=== PATIENT | female | born 1960 | race Caucasian/White ===

== ENCOUNTER → 2017-07-17 | Outpatient (CLI) | payer OTHER | LOC: FIMAGING 15:14 | PROVIDERS: ATTEND Obstetrics & Gynecology | DX: Z12.31 Encounter for screening mammogram for malignant neoplasm of breast (principal); Z80.3 Family history of malignant neoplasm of breast | CPT/HCPCS: G0202 ==

== ENCOUNTER 2018-02-17 00:18 | Emergency (ER) | payer OTHER ==
--- NOTE | 2018-02-17 00:28 | CPEKG ---
Heart Rate: 59 RR Interval: 1017 P-R Interval: 188 QRSD Interval: 80 QT Interval: 416 QTC Interval: 413 P [place]: 78 QRS [place]: 65 T Wave [place]: 39 EKG Severity - NORMAL ECG - EKG Impression: SINUS RHYTHM Electronically Signed By: Daniel Bowman 17-Feb-2018 06:53:47
[2018-02-17] MEDS ORDERED: ASPIRIN 81 MG CHEWABLE TAB PO ONE (00:46)
[2018-02-17 01:11] LABS: PLATELET COUNT 196 10^3/uL (150-400)
--- NOTE | 2018-02-17 02:14 | EDPHY ---
H & P Stated Complaint: 2330 woke up with CP and SOB Time Seen by Provider: 02/17/18 00:24 HPI/ROS: Chief Complaint: Chest pain HPI: 57-year-old healthy woman woke at 1155 with substernal chest pain, at worst in 06/08. It was not radiating. She did feel clammy. Burn no aggravating or alleviating factors. She does not have a history of similar episodes before. She does not smoke. No family history of coronary artery disease. Denies any past medical problems. Takes no medicines. No recent illness. No periods of prolonged immobility. No calf pain or swelling. Pain resolved just prior to arrival here that she is currently without complaint. ROS: 10 point Review of Systems is negative except as noted in the HPI. PMH: Denies Social History: No smoking, occasional alcohol, no recreational drug use Family History: non-contributory Physical Exam: Gen: Awake, Alert, No Distress HEENT: Nose: no rhinorrhea Eyes: PERRLA, EOMI Mouth: Moist mucosa Neck: Supple, no JVD Chest: nontender, lungs clear to auscultation Heart: S1, S2 normal, no murmur Abd: Soft, non-tender, no guarding Back: no CVA tenderness, no midline tenderness Ext: no edema, non-tender Skin: no rash Neuro: CN II-XII intact, Sensation grossly intact, Strength 5/5 in bilateral upper and lower extremities - Personal History Current Tetanus/Diphtheria Vaccine: Yes Current Tetanus Diphtheria and Acellular Pertussis (TDAP): Yes - Medical/Surgical History Hx Asthma: No Hx Chronic Respiratory Disease: No Hx Diabetes: No Hx Cardiac Disease: No Hx Renal Disease: No Hx Cirrhosis: No Hx Alcoholism: No Hx HIV/AIDS: No Hx Splenectomy or Spleen Trauma: No Other PMH: none stated - Social History Smoking Status: Never smoked Constitutional: Initial Vital Signs Temperature (C) 36.6 C 02/17/18 00:19 Heart Rate 69 02/17/18 00:19 Respiratory Rate 18 02/17/18 00:19 Blood Pressure 110/72 02/17/18 00:19 O2 Sat (%) 96 02/17/18 00:19 O2 Delivery Mode Room Air Allergies/Adverse Reactions: No Known Allergies Allergy (Verified 02/17/18 00:22) Home Medications: Medication Instructions Recorded NK [No Known Home Meds] 01/15/15 Medical Decision Making - Diagnostics EKG Interpretation: ECG time 12:27 a.m., sinus rhythm with a rate of 59, normal axis, normal intervals, no acute ST or T-wave changes. Impression: Normal ECG. Imaging Results: Chest x-ray is negative per my interpretation. Imaging: I viewed and interpreted images myself ED Course/Re-evaluation: 57-year-old woman with no risk factors for coronary disease woke with substernal chest pain. Pain is resolved. She has gotten aspirin here. Her ECG is normal. Initial troponin is negative. Chest x-ray is negative. Will plan on a serial troponin ECG. If these are unchanged be discharged with follow -up as an outpatient. 0600 repeat troponin is negative. Patient is resting comfortably without any symptoms. No acute changes on her ECG. No risk factors for acute coronary syndrome. Plan will be to discharge and follow up with primary care physician to arrange for outpatient stress testing. I have considered acute coronary syndrome, STEMI, OH, unstable angina, PE, pneumonia my differential. - Data Points Laboratory Results: Laboratory Results 02/17/18 00:37 02/17/18 00:37 02/17/18 02/17/18 02/17/18 05:00 00:37 00:37 WBC 5.10 10^3/uL 10^3/uL (3.80-9.50) RBC 4.79 10^6/uL 10^6/uL (4.18-5.33) Hgb 16.2 g/dL g/dL (12.6-16.3) Hct 46.5 % % (38.0-47.0) MCV 97.1 fL fL (81.5-99.8) MCH 33.8 pg pg (27.9-34.1) MCHC 34.8 g/dL g/dL (32.4-36.7) RDW 13.5 % % (11.5-15.2) Plt Count 196 10^3/uL 10^3/uL (150-400) MPV 12.1 fL H fL (8.7-11.7) Neut % (Auto) 45.7 % % (39.3-74.2) Lymph % (Auto) 38.0 % % (15.0-45.0) [place] % (Auto) 12.0 % % (4.5-13.0) Eos % (Auto) 2.9 % % (0.6-7.6) Baso % (Auto) 1.0 % % (0.3-1.7) Nucleat RBC Rel Count 0.0 % % (0.0-0.2) Absolute Neuts (auto) 2.33 10^3/uL 10^3/uL (1.70-6.50) Absolute Lymphs (auto) 1.94 10^3/uL 10^3/uL (1.00-3.00) Absolute Monos (auto) 0.61 10^3/uL 10^3/uL (0.30-0.80) Absolute Eos (auto) 0.15 10^3/uL 10^3/uL (0.03-0.40) Absolute Basos (auto) 0.05 10^3/uL 10^3/uL (0.02-0.10) Absolute Nucleated RBC 0.00 10^3/uL 10^3/uL (0-0.01) Immature Gran % 0.4 % % (0.0-1.1) Immature Gran # 0.02 10^3/uL 10^3/uL (0.00-0.10) Sodium 143 mEq/L mEq/L (135-145) Potassium 4.0 mEq/L mEq/L (3.3-5.0) Chloride 105 mEq/L mEq/L (97-110) Carbon Dioxide 24 mEq/l mEq/l (22-31) Anion Gap 14 mEq/L mEq/L (8-16) BUN 17 mg/dL mg/dL (7-23) Creatinine 0.7 mg/dL mg/dL (0.6-1.0) Estimated GFR > 60 Glucose 89 mg/dL mg/dL (70-100) Calcium 9.9 mg/dL mg/dL (8.5-10.4) Troponin I < 0.012 ng/mL ng/mL < 0.012 ng/mL ng/mL (0.000-0.034) (0.000-0.034) Medications Given: Discontinued Medications Aspirin (Aspirin) 324 mg PO EDNOW ONE Stop: 02/17/18 00:47 Last Admin: 02/17/18 00:49 Dose: 324 mg Departure - Departure Disposition: Home, Routine, Self-Care Clinical Impression: Chest pain Condition: Good Instructions: Chest Pain (ED) Additional Instructions: Follow up with primary care physician in 2-3 days to arrange for outpatient stress test. Return to the emergency department for chest pain, shortness of breath, palpitations, fainting, or any other concerns. Referrals: NONE *PRIMARY CARE P,. [Primary Care Provider] - As per Instructions
[2018-02-17 06:13] VITALS: BP 104/74
== END 2018-02-17 06:14 | disposition home or self-care (01) ==
DX: R07.9 Chest pain, unspecified (principal)

== ENCOUNTER → 2018-08-04 | Outpatient (CLI) | payer OTHER | LOC: BMCIMAGING 09:06 | PROVIDERS: ATTEND Podiatrist Foot & Ankle Surgery | DX: M79.672 Pain in left foot (principal) ==

== ENCOUNTER → 2018-11-30 | Outpatient (CLI) | payer OTHER | LOC: FIMAGING 09:08 | PROVIDERS: ATTEND Family Medicine | DX: Z12.31 Encounter for screening mammogram for malignant neoplasm of breast (principal); Z80.3 Family history of malignant neoplasm of breast ==